=== PATIENT | female | born 1975 | race Asian ===

== ENCOUNTER → 2017-12-19 | Outpatient (CLI) | payer OTHER | END | disposition home or self-care (01) | LOC: EMPHLTH 14:15 | PROVIDERS: ATTEND Internal Medicine | DX: R76.11 Nonspecific reaction to tuberculin skin test without active tuberculosis (principal) ==

== ENCOUNTER 2020-07-19 15:15 | Emergency (ER) | payer OTHER | END 2020-07-19 16:27 | disposition left against medical advice (07) | LOC: EMS 15:28 | DX: Z20.828 Contact with and (suspected) exposure to other viral communicable diseases (principal); Z53.21 Procedure and treatment not carried out due to patient leaving prior to being seen by health care provider ==